=== PATIENT | male | born 1955 | race Caucasian/White ===

== ENCOUNTER → 2016-12-24 | Outpatient (CLI) | payer MEDICAID ==
[~2016-12-24] MED LIST: ASPIRIN ENTERI325 M1 PO; COZAAR PO; COZAAR100 MG PO; DICLOXAXILLIN250 MG PO; LANTUS100 U/ML SUBQ; LORCET 5-325 M1 EACH PO; LORTAB 5-325 M1 EACH PO; LOVASTATIN10 MG PO; NOVOLOG FL100 UNIT/1; NOVOLOG100 UNITS/ SUBQ; PATIENT'S PHARMACY; PROBIOTIC250 MG PO; PROTONIX PO; STOOL SOFTENER50 MG PO
--- NOTE | ~2016-12-24 | CT138 ---
[facility] A Service of [facility] RADIOLOGY TEXT RESULTS PATIENT: JOANNE NOGUEIRA LOCATION: [facility] : 59 UNIT #: [id number] AGE: [address]: Steffany Mckoy MD SEX: M ORDER DR: [id number] [facility] [address] [place], [place] [address] [id number] O MR#: [id number] Acc #: [id number] NAME: JOANNE NOGUEIRA. : 1955 SEX: M STUDY DATE/TIME: 12/24/2016 16:23 UNIT: [facility] ROOM: STUDY DESCRIPTION: CT Lung screening initial Attending Physician: Steffany Mckoy M.D. Referring Physician: Steffany Mckoy M.D. Ordering Physician: Steffany Mckoy M.D. Primary Care Physician: Steffany Mckoy M.D. MEDICAL IMAGING REPORT This report is preliminary unless electronic signature is present EXAM CT chest without contrast lung cancer screening INDICATIONS Lung cancer screening. Current smoker, smokes 64 and 1/2 pack-year total smoking history. TECHNIQUE CT of the chest was performed without contrast using low-dose lung cancer screening protocol. Coronal and sagittal reformatted images were obtained. This CT exam was performed with one or more of the following radiation dose reduction techniques: automatic exposure control, adjustment of mA and/or kV according to patient size, and iterative reconstruction. The CT dose index is 3 mGy. COMPARISON STUDIES There are no comparisons available. FINDINGS Emphysema. There is no suspicious pulmonary nodule. There is a tiny area of nodular thickening involving the major fissure on the right on image 67 measuring about 5 mm. There is no airspace consolidation. There is no suspicious lymphadenopathy. Coronary artery calcifications. Aortic valvular calcifications. Limited imaging of the upper abdomen demonstrates a cholecystectomy. The bone windows are unremarkable. IMPRESSION No suspicious pulmonary nodule. ACR Lung-RADS category 2. Followup annual low-dose lung cancer screening chest CT in 1 year. Dictated by... Srinivasa Bellamy M.D. [facility] A Service of [facility] RADIOLOGY TEXT RESULTS PATIENT: JOANNE NOGUEIRA LOCATION: [facility] : 59 UNIT #: [id number] AGE: [address]: Steffany Mckoy MD SEX: M ORDER DR: THIS IS AN ELECTRONICALLY VERIFIED REPORT Srinivasa Bellamy M.D. at 12/26/2016 4:00 PM Eliecer TD: 12/25/2016 17:06 JOB #: [id number] MEDICAL IMAGING REPORT Page 1 of 1 COPY
== END | disposition home or self-care (01) ==
LOC: CCAT 16:04
DX: F17.210 Nicotine dependence, cigarettes, uncomplicated (principal)
CPT/HCPCS: G0297

== ENCOUNTER 2017-01-25 16:20 | Emergency (ER) | payer MEDICAID ==
[~2017-01-25] VITALS: Ht 182.9 cm; Wt 105.2 kg
--- NOTE | ~2017-01-25 | CR94 ---
[facility] A Service of [facility] RADIOLOGY TEXT RESULTS PATIENT: JOANNE NOGUEIRA LOCATION: [facility] : 59 UNIT #: [id number] AGE: [address]: Peter Orr MD SEX: M ORDER DR: [id number] [id number] [facility]. [place], [place] [address] [id number] MR#: [id number] Acc #: [id number] NAME: JOANNE NOGUEIRA : 1955 SEX: M STUDY DATE/TIME: 01/25/2017 17:44 UNIT: [facility] ROOM: STUDY DESCRIPTION: CR Elbow Min 3 Views Rt Attending Physician: Peter Orr M.D. Ordering Physician: Peter Orr M.D. Primary Care Physician: Steffany Mckoy M.D. MEDICAL IMAGING REPORT This report is preliminary unless electronic signature is present EXAM Three views of the right elbow. DATE 01/25/2017 HISTORY 61-year-old male right elbow pain, swelling and redness for 2 weeks. COMPARISON None FINDINGS Posterior elbow soft tissue swelling is present. There is a bony spur projecting from the posterior margin of the olecranon. There is fragmentation of the bony spur, which may be acute or chronic. There is mild degenerative spurring at the coronoid process of the acromion, and mild spurring at the margins of the medial and lateral humeral condyles. No elbow joint dislocation. IMPRESSION 1. Spurring of the posterior margin of the olecranon process of the ulna. There appears to be fragmentation of the spur, which may be acute or chronic. There is overlying posterior elbow soft tissue swelling. 2. 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 Dictated by... Kalyani Santana M.D. THIS IS AN ELECTRONICALLY VERIFIED REPORT Kalyani Santana M.D. at 01/26/2017 9:55 AM [facility] A Service [facility] RADIOLOGY TEXT RESULTS PATIENT: JOANNE NOGUEIRA LOCATION: [facility] : 59 UNIT #: [id number] AGE: [address]: Peter Orr MD SEX: M ORDER DR: KRISTI/nancy TD: 01/25/2017 22:00 JOB #: [id number] MEDICAL IMAGING REPORT Page 1 of 1 COPY
== END 2017-01-25 18:10 | disposition left against medical advice (07) ==
LOC: CED 16:20
DX: M25.521 Pain in right elbow (principal); E11.9 Type 2 diabetes mellitus without complications; F17.200 Nicotine dependence, unspecified, uncomplicated
CPT/HCPCS: 73080; 82947; 96372; 99284

== ENCOUNTER 2017-01-26 18:22 | Inpatient (IN) | payer MEDICAID ==
[~2017-01-26] VITALS: Ht 182.9 cm; Wt 109.0 kg
--- NOTE | ~2017-01-26 | OR ---
Unit #: [id number] #: [id number] Patient: JOANNE NOGUEIRA [id number] [address] [place], [place] [address] [id number] Michele MR#: [id number] NAME: JOANNE NOGUEIRA. ROOM: 462 Date of Procedure: 01/29/2017 Admission Date: 01/26/2017 Surgeon: Maximo Chen M.D. : 1955 Attending Physician: Gonsalo Bey M.D. Primary Care Physician: Steffany Mckoy M.D. OPERATIVE REPORT PREOPERATIVE DIAGNOSIS Right septic elbow olecranon bursitis. POSTOPERATIVE DIAGNOSIS Right septic elbow olecranon bursitis. PROCEDURE PERFORMED Incision and drainage of right elbow septic olecranon bursitis. 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 ANESTHESIA General with LMA. COMPLICATIONS None. SPECIMENS Culture swabs were sent from the wound. DRAINS Quarter-inch Navi drain. SURGICAL IMPLANTS None. INDICATION FOR PROCEDURE Mr. Nogueira is a 61-year-old gentleman, who developed acute onset right elbow erythema, pain, swelling. His symptoms were consistent with septic bursitis. Based on the findings, it was felt he would benefit from I and D of the bursa. The patient elected to proceed with surgery. Risks, benefits, and alternatives were discussed. Informed consent was obtained. Risks include, but are not limited to, persistent infection, bleeding, nerve injury, blood clots, risks associated with anesthesia, need for further surgery, and possibly . DESCRIPTION OF PROCEDURE On 01/29/2017, the patient was seen in the preoperative holding area, where his surgical site was marked. Scheduled antibiotics were received. H and P and consent updated. The patient was taken to the operating room and provided general anesthesia on the operating table. Right upper Unit #: [id number] #: [id number] Patient: JOANNE NOGUEIRA extremity was then prepped and draped in typical sterile fashion. Time-out was performed confirming the correct surgical site and procedure. The arm was laid across the patient's body. A 2 cm incision was made directly over the olecranon bursa slightly radial. Incision was taken down through the skin and subcutaneous tissues. Bursa fluid was decompressed. This was purulent in nature. Culture swabs were sent. The wound was then thoroughly irrigated with about 1 L of normal saline containing bacitracin. Hemostasis was noted. Single 3-0 nylon suture was placed followed by a Navi drain within the wound. 4x4s, ABD pads, Kerlix, and Edgard bandage were placed. The patient was subsequently awakened from general anesthesia in stable condition and taken to PACU postoperatively. POSTOPERATIVE PLAN The patient will return to his hospital room. We will check cultures. He will continue antibiotics. No complications were encountered during the surgical procedure. Dictated by... Maximo Chen M.D. TAMIKA/marv TD: 01/29/2017 13:45 JOB #: [id number] OPERATIVE REPORT Page 1 of 1 X X PROCEDURE OPERATIVE NOTE
--- NOTE | ~2017-01-26 | DS ---
Unit #: [id number] #: [id number] Patient: JOANNE NOGUEIRA [id number] [address] [address] [id number] I MR#: [id number] NAME: JOANNE NOGUEIRA. ROOM: 462 Age: 61 Sex: M Admission Date: 01/26/2017 : 1955 Discharge Date: 01/30/2017 Attending Physician: Gonsalo Bey M.D. Primary Care Physician: Steffany Mckoy M.D. DISCHARGE SUMMARY DISCHARGE DIAGNOSES 1. Right elbow abscess. 2. Septic arthritis. 3. Wound culture grew methicillin-sensitive Staphylococcus aureus. 4. Diabetes mellitus, insulin dependent. 5. Hypertension. 6. Gastroesophageal reflux disease. PERTINENT HISTORY AND HOSPITAL COURSE The patient is a 61-year-old man with a history significant for diabetes and hypertension, who presents with symptoms of redness and swelling over his right arm that has progressively worsened. During his admission the patient was treated with IV antibiotics, IV vancomycin, IV Zosyn. He underwent an orthopedic consultation where the septic arthritis abscess underwent incision and drainage. He was continued on IV antibiotics. His diabetes was controlled on insulin. The patient currently is ready for discharge. His vitals are stable. DISCHARGE MEDICATIONS 1. Losartan 100 mg p.o. daily. 2. Insulin aspart 20 units subcu a.c. breakfast. 3. Insulin aspart 10 units subcu lunch. 4. Insulin aspart 15 units subcu a.c. dinner. 5. Lantus 60 units q.h.s. 6. Aspirin 325 mg daily. 7. Protonix 40 mg daily. 8. Dicloxacillin 500 mg p.o. q.6 h. for seven days. 9. Florastor two capsules b.i.d. for 30 days. DISCHARGE INSTRUCTIONS 1. Follow up with orthopedics in 7 to 10 days 2. Follow up with primary care physician. Dictated by... Nelia Valdez/reuben TD: 02/01/2017 18:26 JOB #: [id number] Unit #: [id number] #: [id number] Patient: JOANNE NOGUEIRA DISCHARGE SUMMARY Page 1 of 1 X X DISCHARGE SUMMARY
--- NOTE | ~2017-01-26 | HP ---
Unit #: [id number] #: [id number] Patient: JOANNE NOGUEIRA [id number] [address] [place], [place] [address] [id number] I MR#: [id number] NAME: JOANNE NOGUIERA. ROOM: 52057 Age: 61 Sex: M Admission Date: 01/26/2017 : 1955 Attending Physician: Maria Del Rosario Rausch M.D. Primary Care Physician: Steffany Mckoy M.D. HISTORY AND PHYSICAL CHIEF COMPLAINT Right olecranon bursitis/cellulitis. HISTORY This pleasant 61-year-old type 2 diabetic male with hypertension and GERD, is admitted for right olecranon bursitis with cellulitis. Patient states that two weeks ago he developed some swelling over his right elbow. Over the past week this area has become more painful, swollen and red. No definite fevers with the above. He was seen at this emergency department yesterday and was prescribed an antibiotic and Ultram but I do not believe he picked up these medicines. It was recommended that he be admitted but he did not stay as he was to start a new job today. Due to increasing symptoms he presented back to this emergency department tonight. He is afebrile. He has obvious cellulitis around the right elbow, with a likely right olecranon bursitis. He was treated with 900 mg of IV clindamycin in the ER. He is a bit anxious as he does smoke about a pack and a half a day. Apparently has some chronic anxiety issues as well. An x-ray was performed yesterday showing spurring of the posterior margin or the olecranon process at the ulna. There appears to be fragmentation of the spur, which could be acute or chronic. The patient denies recent trauma to the right elbow. PAST MEDICAL HISTORY 1. Essential hypertension. 2. AODM x20 years. 3. GERD. 4. Cholecystectomy. 5. Excision of a benign tumor left foot. 6. Excision of a facial mole, which was benign. 7. 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 Apparently the patient has possibly a torn ligament in his left knee as well. ALLERGIES None. HOME MEDICATIONS Losartan 100 mg daily; Lantus 60 unit subcu q.h.s.; NovoLog 20 units in the morning, 10 units in the afternoon, and 15 units in the evening; proton pump inhibitor once a day; aspirin 325 mg a day. Patient was prescribed Ultram and antibiotic but I do not believe he has purchased these. Unit #: [id number] #: [id number] Patient: JOANNE NOGUEIRA FAMILY HISTORY CAD in his mother at an older age. SOCIAL HISTORY The patient lives with his fiancee of 7 years. He smokes between to 1 1/2 packs per day of tobacco and does not drink alcohol REVIEW OF SYSTEMS Notable for pain and swelling of the right elbow, hypertension, AODM, GERD and above mentioned surgeries. All other systems were reviewed and otherwise negative. PHYSICAL EXAMINATION GENERAL: Pleasant, obese, mildly obese 61-year-old male currently in no acute distress. VITAL SIGNS: Temperature 98.9, pulse 78, respirations 16, blood pressure 145/61. O2 saturation is 97% on room air. HEENT: Eyes - PERRLA. Extraocular muscles are intact. Pharynx is benign. NECK: Supple without adenopathy or thyromegaly. EXTREMITIES: Notable for right elbow olecranon bursitis with associated cellulitis. LUNGS: Expiratory wheezes. CARDIAC: Normal S1 and S2 without S3, S4 or murmur ABDOMEN: Bowel sounds are present. No hepatosplenomegaly, tenderness, or masses. NEUROLOGIC: Patient is awake, alert, and oriented. Cranial nerves are intact. Equal strength throughout. DIAGNOSTIC STUDIES LABS: Hematocrit is 35.7, normal white count, platelet count. SMA 12 - glucose 142, potassium 3.4, calcium 8.1, albumin of 3.1, C-reactive protein is 9.5. IMAGING STUDIES: X-ray yesterday - mild DJD of the right elbow, spurring of the posterior margin of the olecranon process of the ulna. Fragmentation of the spur, which could be acute or chronic. Soft tissue swelling. ASSESSMENT 1. Right olecranon bursitis/cellulitis. 2. AODM. 3. Essential hypertension. 4. GERD. 5. Tobacco use. 6. Suspect COPD. PLANS 1. Vancomycin. 2. Orthopedic surgeon to see. 3. SCDs for DVT prophylaxis. 4. Supportive treatment. 5. NicoDerm patch and p.r.n. Ativan for anxiety while he is unable to smoke. Dictated by Unit #: [id number] #: [id number] Patient: JOANNE NOGUEIRA Shannon Rausch M.D. AML/ts TD: 01/27/2017 05:56 JOB #: [id number] HISTORY AND PHYSICAL Page 1 of 1 X Maria Del Rosario Rausch MD X HISTORY AND PHYSICAL
--- NOTE | ~2017-01-26 | OR ---
Unit #: [id number] #: [id number] Patient: JOANNE NOGUEIRA [id number] [address] [place], [place] [address] [id number] I MR#: [id number] NAME: JOANNE NOGUEIRA ROOM: 462 Date of Procedure: 01/28/2017 Admission Date: 01/26/2017 Surgeon: Robin Finn P.A.-C- : 1955 Attending Physician: Gonsalo Bey M.D. Primary Care Physician: Steffany Mckoy M.D. PROCEDURE OPERATIVE NOTE PROCEDURE PERFORMED Right elbow bursa aspiration. REASON FOR PROCEDURE Effusion. PROCEDURE After sterile technique with alcohol prep, the patient's right elbow bursa was anesthetized in a the usual fashion with 2 mL of 1% Xylocaine without epinephrine. 18 gauge cannula was then introduced laterally. Approximately 2 mL of pus was aspirated. The patient tolerated the procedure well with no apparent complications. Sterile dressing was applied. Will send this to the lab for cultures, etc. Dictated by... Minoo Mahan KF/ts TD: 01/28/2017 08:48 JOB #: [id number] PROCEDURE OPERATIVE NOTE Page 1 of 1 X X PROCEDURE OPERATIVE NOTE
--- NOTE | ~2017-01-26 | CO ---
Unit #: [id number] #: [id number] Patient: JOANNE NOGUEIRA [id number] [facility]. [place], [place] [address] [id number] I MR#: [id number] NAME: JOANNE NOGUEIRA. ROOM: 462 Age: 61 Sex: M Admission Date: 01/26/2017 : 1955 Attending Physician: Gonsalo Bey M.D. Primary Care Physician: Steffany Mckoy M.D. CONSULTATION REPORT HISTORY OF PRESENT ILLNESS This is a 61-year-old diabetic, who smokes, who has had right elbow pain for about a week. He noticed some redness and then it began to swell, got progressively worse. He came to the emergency room, was admitted on 01/26/2017. He states he has not had any fevers or chills. It is noted that the redness has been getting worse as was the swelling. 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 He has not had any treatment until he got admitted. He has been started on IV antibiotics. PAST MEDICAL HISTORY Reveals that he does have a history of diabetes as well as reflux and hypertension. SOCIAL HISTORY He socially lives at home with his . He occasionally drinks alcohol. Denies drugs, but is continues to be a smoker. PAST SURGICAL HISTORY Includes cholecystectomy, excision of a tumor left foot and a mole that was benign and he is a diabetic. He gets regular steroid injections into his left knee for his arthritis. ALLERGIES He has no allergies. MEDICATIONS Include losartan, Lantus, NovoLog, and occasionally Ultram. REVIEW OF SYSTEMS He denies headaches or blurred vision. Denies loss of consciousness. He has no chest pain or shortness of breath. He denies hemoptysis. He has no abdominal complaints. No nausea, diarrhea, or vomiting and no reflux symptoms. Neurologically, he is intact. Vascular keita, he has no history of claudication. Genitourinary system, he denies frequency or burning. No blood in the urine. His orthopedic complaints include only in his left knee for arthritis and his right elbow pain and swelling. PHYSICAL EXAMINATION GENERAL: Today reveals he is resting comfortably in bed. VITAL SIGNS: Temperature 99.6, pulse is 69, blood pressure 152/64. EXTREMITIES: Exam of his right elbow; he has good range of motion of the elbow. He does have fluid in the olecranon bursa. There was some erythema and redness as well. Unit #: [id number] #: [id number] Patient: JOANNE NOGUEIRA PLAN Plan will be to aspirate his bursa in the a.m. and if it is a pus, he may need an I and D. Dictated by... Nelia Gibson/marv TD: 01/27/2017 17:44 JOB #: [id number] CONSULTATION REPORT Page 1 of 1 X Michele Frost MD X CONSULTATION REPORT
--- NOTE | ~2017-01-26 | EKG ---
PATIENT: JOANNE NOGUEIRA UNIT #: [id number] Ventricular Rate: 71 BPM Atrial Rate: 71 BPM P-R Interval: 160 ms QRS Duration: 90 ms Q-T Interval: 408 ms QTC Calculation(Bezet): 443 ms P Muir: 58 degrees Calculated R Muir: -20 degrees Calculated T Muir: -27 degrees Diagnosis Line: Normal sinus rhythm Diagnosis Line: Normal ECG Diagnosis Line: No previous ECGs available Diagnosis Line: Confirmed by TAL ALANIS MD ([id number]) on Diagnosis Line: 01/27/2017 12:19:14 PM INTERPRETING MD: SHANNON
[2017-01-26 21:19] LABS: BASOPHIL# 0.1 X10e3 (0-0.3); BASOPHIL% 1.2 % (0-2.5); EOSINOPHIL# 0.2 X10e3 (0-0.7); EOSINOPHIL% 1.9 % (0.0-7.0); HEMATOCRIT 35.7 % (38.0-50.0); HEMOGLOBIN 11.8 gm/dL (13.0-16.0); LYMPHOCYTE# 2.7 X10e3 (1.0-3.5); LYMPHOCYTE% 24.3 % (17.0-45.0); MEAN CELL VOLUME 83.3 FL (83-96); MEAN CORPUSCULAR HEMOGLOBIN 27.5 PG (28-34); MEAN PLATELET VOLUME 7.9 FL (6.5-11.5); MONOCYTE# 1.1 X10e3 (0-1.0); MONOCYTE% 9.7 % (3.0-12.0); NEUTROPHIL# 6.9 X10e3 (1.5-7.1); NEUTROPHIL% 62.9 % (40-75); PLATELET COUNT 274 X10e3 (140-420); RED BLOOD COUNT 4.29 X10e (3.90-5.60); RED CELL DISTRIBUTION WIDTH 13.5 % (11.0-15.5)
[2017-01-26 21:20] LABS: DIFF IND NO
[2017-01-26 22:00] LABS: ALBUMIN SERUM 3.1 g/dL (3.5-5.0); BILIRUBIN, DIRECT 0.1 mg/dL (0.0-0.2); BILIRUBIN,INDIRECT 0.3 mg/dL (0.0-0.9); BILIRUBIN,TOTAL 0.4 mg/dL (0.2-2.0); BUN/CREATININE RATIO 22.85; CALCIUM SERUM 8.1 mg/dL (8.4-10.2); CREATININE SERUM 0.7 mg/dL (0.6-1.4); GLOM FILT RATE Estimated 103.3 mL/min (>60); POTASSIUM 3.4 mmol/L (3.5-5.1); PROTEIN TOTAL SERUM 6.7 g/dL (6.0-8.3)
[2017-01-27 03:53] LABS: BASOPHIL# 0.1 X10e3 (0-0.3); DIFF IND NO; EOSINOPHIL# 0.2 X10e3 (0-0.7); EOSINOPHIL% 2.2 % (0.0-7.0); HEMATOCRIT 33.8 % (38.0-50.0); HEMOGLOBIN 11.4 gm/dL (13.0-16.0); LYMPHOCYTE# 2.8 X10e3 (1.0-3.5); LYMPHOCYTE% 26.6 % (17.0-45.0); MEAN CELL VOLUME 82.7 FL (83-96); MEAN CORPUSCULAR HEMOGLOBIN 27.8 PG (28-34); MEAN CORPUSCULAR HGB CONC 33.6 g/dL (30-36); MEAN PLATELET VOLUME 8.1 FL (6.5-11.5); MONOCYTE# 0.9 X10e3 (0-1.0); NEUTROPHIL# 6.4 X10e3 (1.5-7.1); NEUTROPHIL% 61.2 % (40-75); PLATELET COUNT 238 X10e3 (140-420); RED BLOOD COUNT 4.09 X10e (3.90-5.60); RED CELL DISTRIBUTION WIDTH 13.8 % (11.0-15.5); WHITE BLOOD COUNT 10.4 X10e3 (4.0-10.5)
[2017-01-27 04:15] LABS: BUN/CREATININE RATIO 21.42; CALCIUM SERUM 7.9 mg/dL (8.4-10.2); CREATININE SERUM 0.7 mg/dL (0.6-1.4); GLOM FILT RATE Estimated 103.3 mL/min (>60); POTASSIUM 3.4 mmol/L (3.5-5.1)
[2017-01-27] MEDS ORDERED: ASPIRIN ENTERI325 M1 PO (08:39)
[2017-01-27] MEDS ORDERED: COZAAR100 MG PO (08:39)
[2017-01-27] MEDS ORDERED: LANTUS100 U/ML SUBQ (08:41)
[2017-01-27] MEDS ORDERED: NOVOLOG100 UNITS/ SUBQ ×3 (08:41→08:44)
[2017-01-27] MEDS ORDERED: PROTONIX PO (09:24)
[2017-01-29 01:58] LABS: MAGNESIUM 2.1 mg/dL (1.6-3.0); POTASSIUM 3.5 mmol/L (3.5-5.1)
[2017-01-30 03:21] LABS: CREATININE SERUM 0.7 mg/dL (0.6-1.4); GLOM FILT RATE Estimated 103.3 mL/min (>60); POTASSIUM 4.2 mmol/L (3.5-5.1)
[2017-01-30] MEDS ORDERED: DICLOXAXILLIN250 MG PO (13:24)
[2017-01-30] MEDS ORDERED: LORCET 5-325 M1 EACH PO (13:26)
[2017-01-30] MEDS ORDERED: PROBIOTIC250 MG PO (13:27)
== END 2017-01-30 14:28 | disposition home or self-care (01) | DRG 549 ==
LOC: CED 18:22 → CEDOF 23:50 → C4C 23:50 → CEDOF 23:59 → CED 23:59 → CEDOF 01-27 07:47 → C4C 01-27 07:55
PROVIDERS: Emergency Medicine; Internal Medicine; Orthopaedic Surgery
PROC: 0R9L3ZX Drainage of Right Elbow Joint, Percutaneous Approach, Diagnostic (ICD-10-PCS; 2017-01-28)
PROC: 0M930ZX Drainage of Right Elbow Bursa and Ligament, Open Approach, Diagnostic (ICD-10-PCS; principal; 2017-01-29 10:00)
DX: M00.021 Staphylococcal arthritis, right elbow (principal); L03.113 Cellulitis of right upper limb; I10 Essential (primary) hypertension; L02.413 Cutaneous abscess of right upper limb; E11.9 Type 2 diabetes mellitus without complications; F41.9 Anxiety disorder, unspecified; B95.61 Methicillin susceptible Staphylococcus aureus infection as the cause of diseases classified elsewhere; M70.21 Olecranon bursitis, right elbow; K21.9 Gastro-esophageal reflux disease without esophagitis; F17.210 Nicotine dependence, cigarettes, uncomplicated; Z90.49 Acquired absence of other specified parts of digestive tract; Z79.4 Long term (current) use of insulin
CPT/HCPCS: 36415; 80048; 80076; 80202; 82947; 83735; 84132; 85025; 85652; 85730; 86140; 87040; 87070; 87075; 87077; 87186; 87205; 93005; 94640; 94760; 94761; 96365; 99284; J1815; J2060; J2405; J2543; J3010; J3370

== ENCOUNTER 2017-02-16 10:06 | Inpatient (IN) | payer MEDICAID ==
[~2017-02-16] VITALS: Ht 182.9 cm; Wt 105.4 kg
--- NOTE | ~2017-02-16 | HP ---
Unit #: [id number] #: [id number] Patient: JOANNE NOGUEIRA [id number] [facility]. [place], [place] [address] [id number] I MR#: [id number] NAME: JOANNE NOGUEIRA. ROOM: 43323 Age: 61 Sex: M Admission Date: 02/16/2017 : 1955 Attending Physician: Trinity Isaacs M.D. Primary Care Physician: Steffany Mckoy M.D. HISTORY AND PHYSICAL CHIEF COMPLAINT Short of air, chest pain. HPI The patient is a 61-year-old male with past medical history of hypertension, diabetes, GERD who presented to the emergency department for evaluation of the above. The patient states that he has had at least a 2 week history of increasing shortness of breath and lower extremity swelling. He states that he has had an intermittently productive cough. He denies any fever. He has also had intermittent chest pain. He reports 2 pillow orthopnea as well as paroxysmal nocturnal dyspnea. He is not sure if he has gained weight. He has noticed increasing lower extremity swelling. He has never been told that he has congestive heart failure. He states that he had a stress test more than 5 years ago in [place]. He has never had a cardiac catheterization. He did see a car wiper in [place] within the past year for cardiac clearance for knee surgery. In the emergency department, initial oxygen saturation was 95% on room air. Blood pressure 152/75. Chest x-ray shows findings concerning for edema. BNP is 760. Initial troponin 0.09. EKG shows normal sinus rhythm with rate of 76 beats per minute. He was given aspirin as well as sublingual nitroglycerin (3 doses) in the emergency department. Additionally, nitro paste was placed. He was also given 40 mg of furosemide. He is currently on BiPAP. He is being admitted to [facility] for evaluation and further treatment. PAST MEDICAL HISTORY 1. Admission to [facility] January 26 through the 2016, for right elbow abscess. Wound culture from January 29, 2017, grew MSSA. He was discharged home on dicloxacillin which he completed as prescribed. He underwent incision and drainage of the right elbow during that admission. 2. Diabetes. 3. Hypertension. 4. GERD. PAST SURGICAL HISTORY 1. Incision and drainage of right elbow septic olecranon bursitis. 2. Cholecystectomy. 3. Left foot surgery. 4. Excision of facial lesion. 5. Knee surgery. Unit #: [id number] #: [id number] Patient: JOANNE NOGUEIRA SOCIAL HISTORY The patient lives with his fiancee. He smokes a pack of cigarettes daily. There is no alcohol use. FAMILY HISTORY Notable for coronary artery disease. ALLERGIES No known allergies. HOME MEDICATIONS Include: 1. NovoLog. 2. Lantus. 3. Protonix. 4. Losartan. 5. Aspirin. Home medications will need to be reviewed and verified. REVIEW OF SYSTEMS A complete review of systems is negative except as noted in the HPI. The patient did say that his blood sugars are typically in the 100s. DIAGNOSTIC TESTS CARDIOVASCULAR: EKG shows normal sinus rhythm with a rate of 76 beats per minute. IMAGING: Chest x-ray shows mild cardiac enlargement with diffuse interstitial change concerning for edema. LABORATORY: Complete blood count notable for hemoglobin and hematocrit of 9.7 and 29.9 respectively. MCV is 81.9. Comprehensive metabolic panel notable for chloride of 99, glucose is 264, albumin 3.3, BUN is 760, INR is 1.2, troponin is 0.09. PHYSICAL EXAMINATION VITAL SIGNS: Temperature is 97.7, pulse 81, respirations 16, blood pressure 152/75. Oxygen saturation 95% on room air. GENERAL: The patient is a male who is awake, currently on BiPAP. HEENT: The head is atraumatic. Mucous membranes are moist. NECK: Supple. Trachea is midline. CARDIOVASCULAR: Regular rate and rhythm. LUNGS: Demonstrate bibasilar crackles. Breathing is mildly labored. ABDOMEN: Soft, nontender with bowel sounds present in all four quadrants. EXTREMITIES: Show 2-3+ pitting edema. NEURO: The patient is oriented x3. He follows commands. PSYCH: Mood and affect are normal. The patient is cooperative. SKIN: Skin of examined areas is warm and dry. ASSESSMENT The patient is a 61-year-old male with: 1. Congestive heart failure, new with exacerbation. The patient received 40 mg of furosemide in the emergency department. He also has nitro paste. Unit #: [id number] #: [id number] Patient: JOANNE NOGUEIRA 2. Chest pain. The patient received nitroglycerin and is currently had nitro paste. He also received aspirin. He had a stress test more than 5 years ago. He has never had a cardiac catheterization. He did see a car wiper in [place] for cardiac clearance for knee surgery. 3. Hypertension. 4. Uncontrolled diabetes with glucose of 264 noted on comprehensive metabolic panel. 5. GERD. 6. History of MSSA elbow abscess, status post incision and drainage. 7. Tobacco abuse. PLAN 1. Admit to ICU. 2. NPO except medications. 3. Continue BiPAP at current settings (05/13 with an FIO2 of 40%). 4. 2D echo for further evaluation of new CHF. 5. Nitro paste, 1 inch q.6 hours. 6. Lasix 40 mg IV daily. 7. Serial cardiac enzymes. 8. TSH. 9. Strict I's and O's. 10. Daily weights. 11. Consult Dr. Hall regarding new CHF. 12. Consult chest medicine regarding ICU admission and BiPAP. 13. Duo-Nebs q.4 hours p.r.n. 14. Hemoglobin A1c. 15. Low dose sliding scale insulin with Accu-Cheks. 16. Protonix for GI prophylaxis since the patient will be in the ICU. 17. SCDs for DVT prophylaxis. 18. Repeat labs in the morning. 30 minutes critical care time spent in the care of this patient (12:45 to 1:15 p.m.). Dictated by Nelia Craig/sommer TD: 02/16/2017 15:17 JOB #: [id number] HISTORY AND PHYSICAL Page 1 of 1 X Trinity Isaacs MD HISTORY AND PHYSICAL
--- NOTE | ~2017-02-16 | CR72 ---
[facility] A Service of [facility] / [facility] RADIOLOGY TEXT RESULTS PATIENT: JOANNE NOGUEIRA LOCATION: [facility] 575-01 : 59 UNIT #: [id number] AGE: [address]: Chantal Henson MD SEX: M ORDER DR: [id number] [id number] [facility]. [place], [place] [address] [id number] I MR#: [id number] Acc #: [id number] NAME: JOANNE NOGUEIRA : 1955 SEX: M STUDY DATE/TIME: 02/17/2017 5:55 UNIT: [facility] ROOM: [facility] STUDY DESCRIPTION: CR Chest Single View Portable Attending Physician: Chantal Henson M.D. Ordering Physician: Arturo Vital M.D. Primary Care Physician: Steffany Mckyo M.D. MEDICAL IMAGING REPORT This report is preliminary unless electronic signature is present EXAM Frontal chest 02/17/2017 INDICATIONS Respiratory failure in a 61-year-old male. bilateral soft tissue swelling of the lower extremities and chest pain symptoms began 2 days ago. Hypertension and diabetes. FINDINGA Frontal chest compared with 02/16/2017. Cardiac silhouette is stable. Interstitial AND alveolar infiltrates are moderately extensive and worse on the right than the left. There may be a trace amount of pleural fluid bilaterally. No pneumothorax. IMPRESSION Interstitial and alveolar infiltrates bilaterally right greater than left persist and are stable to slightly worse when compared to the prior study. No pneumothorax. Differential includes possibility of multifocal pneumonia or pneumonia and superimposed vascular congestion. Dictated by... Eric Taylor M.D. THIS IS AN ELECTRONICALLY VERIFIED REPORT Eric Taylor M.D. at 02/17/2017 2:29 PM Arinana TD: 02/17/2017 12:24 JOB #: [id number] [facility] A Service [facility] RADIOLOGY TEXT RESULTS PATIENT: JOANNE NOGUEIRA LOCATION: [facility] [id number] : [birth year] UNIT #: [id number] AGE: [address]: Chantal Henson MD SEX: M ORDER DR: MEDICAL IMAGING REPORT Page 1 of 1 COPY
--- NOTE | ~2017-02-16 | CR72 ---
[facility] A Service of [facility] & [facility] RADIOLOGY TEXT RESULTS PATIENT: JOANNE NOGUEIRA LOCATION: [address]19 : [birth year] UNIT #: [id number] AGE: [address]: Chantal Henson MD SEX: M ORDER DR: [id number] [facility] [address] [facility]. [place], [place] [address] [id number] I MR#: [id number] Acc #: [id number] NAME: JOANNE NOGUEIRA. : 1955 SEX: M STUDY DATE/TIME: 02/16/2017 11:08 UNIT: [facility] ROOM: [facility] STUDY DESCRIPTION: CR Chest Single View Portable Attending Physician: Trinity Isaacs M.D. Ordering Physician: Tyler Ramon M.D. Primary Care Physician: Steffany Mckoy M.D. MEDICAL IMAGING REPORT This report is preliminary unless electronic signature is present EXAM AP portable chest. DATE 02/16/2017 HISTORY Shortness of breath and chest pain with bilateral lower extremity swelling for 2 weeks. Diabetes. Hypertension. History of smoking. COMPARISON PA and lateral chest radiograph, 02/06/2016. FINDINGS Diffuse interstitial and alveolar disease changes are present within both lungs, right greater than left. No definite pleural effusion is seen. There is mild cardiac enlargement which appears new since the prior study. No acute osseous abnormalities are identified. IMPRESSION 1. Diffuse interstitial and alveolar disease changes in both lungs. Interval development of mild cardiac enlargement. Findings may represent changes of developing pulmonary edema compared to 02/06/2016. Pneumonia can have a similar appearance of the appropriate clinical context. Dictated by... Kalyani Santana M.D. THIS IS AN ELECTRONICALLY VERIFIED REPORT Kalyani Santana M.D. at 02/17/2017 9:50 AM [facility] A Service of [facility] & [facility] RADIOLOGY TEXT RESULTS PATIENT: JOANNE NOGUEIRA LOCATION: [facility]07-19 : 59 UNIT #: [id number] AGE: [address]: Chantal Henson MD SEX: M ORDER DR: KRISTI/iris TD: 02/16/2017 21:14 JOB #: [id number] MEDICAL IMAGING REPORT Page 1 of 1 COPY
--- NOTE | ~2017-02-16 | CO ---
Unit #: [id number] #: [id number] Patient: JOANNE NOGUEIRA [id number] [facility]. [place], [place] [address] [id number] I MR#: [id number] NAME: JOANNE NOGUEIRA ROOM: 575 Age: 61 Sex: M Admission Date: 02/16/2017 : 1955 Attending Physician: Chantal Henson M.D. Primary Care Physician: Steffany Mckoy M.D. Consultation Date: 02/16/2017 CONSULTATION REPORT REASON FOR CONSULTATION CHF. HISTORY OF PRESENT ILLNESS This is a 61-year-old male with a prior history of hypertension, diabetes mellitus, GERD, tobacco abuse, and a recent admission to [facility] in 01/2017 for MRSA elbow abscess and septic arthritis. He denies a prior cardiac history or prior cardiac testing. He was discharged from [facility] on Thursday. Later that night, he developed sharp left chest pain with shortness of air lasting about 5 minutes. It occurred at rest and resolved spontaneously. He denies diaphoresis, nausea, palpitations, or radiating pain with the episode. Since then, he has had increasing shortness of air. He states he has also had orthopnea, PND, and bilateral lower extremity edema for about the last 3 days. Prior to this incident, he denies any exertional chest pain. His dpagr-kk-bapc troponin in the ER is 0.09. He is currently on a noninvasive ventilator BiPAP. His breathing has improved. He denies any chest pain at this time. PAST MEDICAL HISTORY 1. Hypertension. 2. Diabetes mellitus. 3. GERD. 4. Tobacco abuse. 5. Recent admission for septic arthritis and MRSA elbow abscess. SOCIAL HISTORY He lives with his significant other. He states he is a former heavy drinker, but he quit over 30 years ago. He denies drug use. He smokes about 1-1/2 packs per day. FAMILY HISTORY His mother had coronary artery disease. PAST SURGICAL HISTORY 1. Incision and drainage of right elbow septic bursitis. 2. Cholecystectomy. 3. Left foot surgery. 4. Excision of facial lesion. 5. Knee surgery. Unit #: [id number] #: [id number] Patient: JOANNE NOGUEIRA ALLERGIES No known drug allergies. HOME MEDICATIONS NovoLog FlexPen 15 units in the a.m., 10 units at noon, and 20 units before dinner; Lortab 5/325 mg tablets, 1 tab p.o. every 6 hours as needed for pain; Protonix 40 mg p.o. daily; Cozaar 100 mg p.o. daily; Lantus 60 units subcu at bedtime; lovastatin 10 mg p.o. daily; stool softener 100 mg p.o. b.i.d. REVIEW OF SYSTEMS A 10-point review of systems was conducted and is otherwise negative except for what was stated in the HPI. PHYSICAL EXAMINATION VITAL SIGNS: Temperature 97.7, heart rate 75, respiratory rate 20, blood pressure 132/75. GENERAL: This is a 61-year-old male, resting in bed, on noninvasive ventilator, in no acute distress. HEENT: Head is atraumatic and normocephalic. Pupils are equal and reactive to light. Mucous membranes are moist and intact. NECK: Positive JVD. LUNGS: Rhonchi. Nonlabored respirations on BiPAP. CARDIOVASCULAR: S1 and S2. Regular rate and rhythm. No significant murmurs, rubs, or gallops. ABDOMEN: Bowel sounds positive. Abdomen is soft, nontender, and nondistended. EXTREMITIES: Bilateral lower extremities with 2+ edema. Pulses palpable. No cyanosis. NEUROLOGIC: Alert and oriented x3. Moves all extremities equally and follows commands without difficulty. DIAGNOSTIC STUDIES LABORATORY RESULTS: Sodium 136, potassium 3.5, chloride 99, BUN 12, creatinine 1, glucose 264. Hemoglobin 9.7, hematocrit 29.9, white blood cell count 9.7, platelets 337. BNP 760. Ideac-jw-atxe troponin 0.09. IMAGING STUDIES: Chest x-ray shows mild cardiomegaly with diffuse interstitial alveolar changes bilaterally which could represent pneumonia or pulmonary edema. CARDIOVASCULAR STUDY: EKG shows sinus rhythm with ventricular rate of 76 and nonspecific T-wave abnormalities. ASSESSMENT 1. Acute congestive heart failure. 2. Chest pain. 3. Uncontrolled diabetes mellitus. 4. Hypertension. 5. Elevated troponin. 6. Recent methicillin-resistant Staphylococcus aureus elbow abscess. 7. Tobacco abuse. PLAN His breathing has improved. He denies chest pain. We will check an echocardiogram. Trend his enzymes. Check TSH and lipid profile. We will add a statin, aspirin, and Lovenox. Continue his ARB. Add beta-jasmin. He will need an ischemic workup when his pulmonary status improves. Unit #: [id number] #: [id number] Patient: JOANNE NOGUEIRA Thank you for asking us to see this patient. We appreciate the consult. Dictated by... AKBAR Grider/marv TD: 02/17/2017 06:43 JOB #: [id number] CONSULTATION REPORT Page 1 of 1 X X CONSULTATION REPORT
--- NOTE | ~2017-02-16 | DS ---
Unit #: [id number] #: [id number] Patient: JOANNE NOGUEIRA [id number] [address] [address] [id number] I MR#: [id number] NAME: JOANNE NOGUEIRA. ROOM: 575 Age: 61 Sex: M Admission Date: 02/16/2017 : 1955 Discharge Date: Attending Physician: Chantal Henson M.D. Primary Care Physician: Steffany Mckoy M.D. DISCHARGE SUMMARY EXPECTED DATE OF DISCHARGE 02/19/2017 REASON FOR DISCHARGE Reason for discharge is [facility] Cardiology service with cardiovascular surgery to evaluate upon arrival to [facility] for CABG procedure. ADMISSION DIAGNOSES 1. Congestive heart failure, new, with exacerbation. 2. Chest pain. 3. Hypertension. 4. Uncontrolled diabetes. 5. Gastroesophageal reflux disease. 6. History of elbow abscess status post incision and drainage. 7. History of methicillin-sensitive Staphylococcus aureus infection. Cultures completed 01/28/2017. DISCHARGE DIAGNOSES 1. Severe coronary artery disease, status post abnormal cardiac catheterization. 2. Questionable aortic stenosis/regurgitation. 3. Anemia. 4. Acute hypoxic respiratory failure. 5. Type 2 diabetes mellitus, uncontrolled. 6. Tobacco abuse. 7. Non-ST elevation myocardial infarction. 8. Possible obstructive sleep apnea. CONSULTANTS Arturo Vital M.D., pulmonary medicine and Antonio Hall M.D., [facility] Cardiology. PROCEDURES Cardiac catheterization 02/18/17, final diagnoses: 1. Severe 2 vessel coronary artery disease. 2. Mild to moderate left ventricular systolic dysfunction. 3. Mild to moderate aortic stenosis, mild to moderate aortic regurgitation. 4. Moderate to severe pulmonary hypertension. 5. Diabetes mellitus. 6. COPD. 7. ACC diagnostic recommendations: CABG. Unit #: [id number] #: [id number] Patient: JOANNE NOGUEIRA CONDITION Stable. DISPOSITION [facility] where the patient has been accepted to room 815 under the care of [facility] Cardiology with cardiovascular surgery to evaluate upon arrival to [facility]. ALLERGIES No known drug allergies. DISCHARGE MEDICATIONS 1. Combivent 3 mL inhaled q.i.d. and p.r.n. shortness of air. 2. Lovenox 100 mg subcu every 12 hours. 3. Zofran 4 mg IV q.4 hours p.r.n. nausea. 4. Nicotine transdermal 21 mg transdermally every morning. 5. Ativan 0.5 mg IV q.6 hours p.r.n. nervousness. 6. Dulera 200 mcg/5 mcg inhaler 2 puffs inhaled b.i.d. 7. Colace 100 mg p.o. b.i.d. p.r.n. constipation. 8. Bumetanide 2 mg p.o. b.i.d. 9. Lipitor 80 mg p.o. at bedtime. 10. Cozaar 50 mg p.o. at bedtime. 11. NovoLog high dose sliding scale insulin before meals and at bedtime based on Accu-Cheks a.c. and h.s. 12. Zithromax 250 mg p.o. daily. Start date 02/17/17. Stop date 02/20/17. 13. Aspirin 81 mg p.o. every 24 hours. 14. Hydrocodone/APAP 5/325 mg tab 1 p.o. q.6 hours p.r.n. pain. 15. Percocet 5/325 mg tab 1 to 2 tabs p.o. q.4 hours p.r.n. pain. 16. Protonix 40 mg p.o. q. day. 17. Sodium chloride 1 mL IV q. shift p.r.n. for IV catheter maintenance. 18. Nitroglycerin 2% ointment 0.5 g topically every 12 hours (1/2 inch b.i.d.). 19. Coreg 3.125 mg 1 p.o. b.i.d. to be held for systolic blood pressure less than 100 mmHg or heart rate less than 60 per minute. DISHCARGE/TRANSFER INSTRUCTIONS 1. Patient will be transferred via ambulance, which has been arranged by the childcare provider, to [facility] later this afternoon. 2. Yash CoppolaP.RMartina, with [facility] Cardiology, who is working with Dr. Hall today at [facility]. [facility], has communicated the transfer information to nurse practitioners at [facility] today. Again, patient will be admitted to [facility] Cardiology with cardiovascular surgery to consult and evaluate upon arrival for CABG procedure. MOST RECENT DIAGNOSTIC STUDIES LABORATORY: WBC 9.4, hemoglobin 9.1, hematocrit 28.3, platelets 283,000. INR 1.1, PT 12.2, PTT 28.5. BNP 840. BMP: Sodium 136, potassium 4.3, chloride 98, CO2 33, glucose 398, BUN 24, creatinine 1.0, calcium 8.0. Magnesium 2.2. Hemoglobin A1C 9.4. Troponins 0.24, 0.28, 0.22. IMAGING: Two-view chest x-ray date of study 02/18/17, impression: slight increase in bilateral infiltrate suggesting CHF per report. HOSPITAL COURSE Patient is a 61-year-old male who presented to [facility]. [facility] and Unit #: [id number] #: [id number] Patient: [facility] emergency department on the date of admission with a 2 week history of increasing shortness of breath and lower extremity edema. His symptoms are associated with an intermittent productive cough as well as intermittent chest pain. He reported 2 pillow orthopnea as well as PND. EKG in the emergency department showed normal sinus rhythm with rate of 76 beats per minute. The patient was treated with aspirin as well as three doses of sublingual nitroglycerin. He was also treated with Lasix 40 mg IV. He was placed on BiPAP and admitted to the hospital for further evaluation and management of his condition. Please refer to the history and physical report for complete details. Patient was evaluated my [facility] Cardiologists with assessment of acute congestive heart failure, constipation, uncontrolled diabetes mellitus, hypertension, elevated troponin as well as recent MRSA infection of an elbow abscess. Patient is also noted to abuse tobacco. Cardiac workup was initiated and he underwent cardiac catheterization procedure yesterday by Dr. Ortiz. Per review of the finalized cardiac diagnostic report, coronary arteries show mild to moderate calcification. Aortic valve leaflets moderately calcified. Mild left ventricular systolic dysfunction with ejection fraction of 45 to 50%. Mild to moderate aortic regurgitation seen. 95% stenosis in proximal 1/3rd of the dominant circumflex and 90% stenosis in midsection of a medium caliber LAD. Moderate to severe pulmonary hypertension with right ventricular systolic pressure 58 mmHg. Coronary wedge pressure 31/48 with tall V waves suggestive of mitral regurgitation. Calculated aortic valve area is 1.82 cm square suggesting mild to moderate aortic stenosis. Final diagnoses include severe 2 vessel coronary artery disease, mild to moderate left ventricular systolic dysfunction, mild to moderate aortic stenosis, mild to moderate aortic regurgitation, moderate to severe pulmonary hypertension, diabetes mellitus and COPD. ACC diagnostic recommendations include CABG with OLIVAS graft to LAD and a vein graft to the posterior marginal branch of circumflex per report. The plan included increased dose of diuretics, losartan dose continued after afterload reduction, 1800 mL fluid restriction. Patient was advised to discontinue use of nicotine. Nonselective beta blockers continued for prevention of left ventricular remodeling. Consideration should be given to preoperative LULY to determine severity of mitral regurgitation. Patient was also evaluated during the hospitalization for acute respiratory failure noted clinically by increased respiratory rate, increased work of breathing and need for noninvasive mask ventilation initially. Patient was evaluated and managed from a pulmonary standpoint by Dr. Arturo Vital. He noted chest x-ray to be consistent with congestive heart failure, underlying COPD versus airway edema, likely obstructive sleep apnea. The patient was evaluated by Dr. Vital this morning. His recommendation includes continued inhaled medications, pulse oximetry. Room air pulse oximeter reading is pending at this time. Patient will be transferred at O2 titrated to 4 L per minute to maintain oxygen saturations greater than or equal to 92%. The patient's vital signs have been stable throughout the hospital course. Accu-Cheks have been elevated with range of 142 to 398 today. The patient is awake, alert and oriented x3. Dr. Hall and Aminta Keller, Emelia, have spoken with the patient and discussed the plan for transfer to [facility] for CABG and he is in agreement with the plan. I have also spoken with him and Dr. Henson and Dr. Henson has given the order for the patient to be transferred to [facility] later this afternoon. Unit #: [id number] #: [id number] Patient: JOANNE NOGUEIRA Dictated by... Yash CantuPNegritoRMartina for Nelia Pindeo/reuben TD: 02/19/2017 16:59 JOB #: [id number] DISCHARGE SUMMARY Page 1 of 1 X Kristine Vargas [employer] X DISCHARGE SUMMARY
--- NOTE | ~2017-02-16 | EKG ---
PATIENT: JOANNE NOGUEIRA UNIT #: [id number] Ventricular Rate: 71 BPM Atrial Rate: 71 BPM P-R Interval: 182 ms QRS Duration: 88 ms Q-T Interval: 432 ms QTC Calculation(Bezet): 469 ms P Busy: 63 degrees Calculated R Busy: -10 degrees Calculated T Busy: -70 degrees Diagnosis Line: Normal sinus rhythm Diagnosis Line: ST and T wave abnormality, consider anterolateral Diagnosis Line: ischemia Diagnosis Line: Prolonged QT Diagnosis Line: Abnormal ECG Diagnosis Line: When compared with ECG of 16-FEB-2017 10:18, Diagnosis Line: No significant change was found Diagnosis Line: Confirmed by DINO SEXTON MD ([id number]) on Diagnosis Line: 02/20/2017 11:33:10 AM INTERPRETING MD: CARLIE MCGUIRE
--- NOTE | ~2017-02-16 | CO ---
Unit #: [id number] #: [id number] Patient: JOANNE NOGUEIRA [id number] [address] [place], [place] [address] [id number] I MR#: [id number] NAME: JOANNE NOGUEIRA. ROOM: 575 Age: 61 Sex: M Admission Date: 02/16/2017 : 1955 Attending Physician: Chantal Henson M.D. Primary Care Physician: Steffany Mckoy M.D. Consultation Date: 02/16/2017 CONSULTATION REPORT REASON FOR CONSULTATION Respiratory failure. HISTORY OF PRESENT ILLNESS The patient is a 61-year-old a gentleman, who has a history of diabetes and hypertension, who apparently was at this institution in 01/2017 for right elbow abscess with methicillin-sensitive Staph aureus. He then presents to the hospital this time with shortness of breath. He says he has been short of breath basically since that discharge. It worsened, and he presented to the emergency room. In the emergency room, he looks quite short of breath, was placed on noninvasive mask ventilation. Chest x-ray suggested pulmonary edema. He has been given Lasix any he feels much better. He is in the intensive care unit on face mask oxygen and prefers not to wear BiPAP. He has had wheezing, but generally does not wheeze. He has occasional green sputum "when I can get it up." He denies fever, hemoptysis, or chest pain. PAST MEDICAL HISTORY Remarkable for recent septic arthritis, diabetes, hypertension, gastroesophageal reflux. He denies previous heart disease or lung disease or cancer. MEDICATIONS At home according to the med rec sheet and EHR include insulins, Protonix, losartan, and aspirin. He denies any inhaled medicines and denies oxygen at home. ALLERGIES No known medical allergies. FAMILY HISTORY Coronary artery disease. SOCIAL HISTORY Smokes a pack of cigarettes a day. He does not drink. REVIEW OF SYSTEMS He does snore. Denies fever, chills, weight loss, chest pain, palpitations, abdominal pain, melena, hematochezia, hematuria, or dysuria. He has noted bilateral lower extremity edema over the last "few days." Further review of systems unremarkable. PHYSICAL EXAMINATION GENERAL: Reveals a patient, who is in no acute distress, 100% saturations Unit #: [id number] #: [id number] Patient: JOANNE NOGUEIRA on face mask oxygen. VITAL SIGNS: He is afebrile. Pulse 79, respiratory rate is 18, blood pressure 137/71, he is 6 feet tall, 229, BMI is 31. HEENT: Pupils equal, round, and reactive to light. Sclerae anicteric. Head atraumatic. NECK: Supple. No supraclavicular or cervical adenopathy appreciated. Mallampati class IV oropharynx. CHEST: Expiratory wheeze. Scattered rhonchi. No consolidation. CARDIAC: Reveals distant heart tones. Regular rate and rhythm. No definite pathologic murmur, rub, or gallop. ABDOMEN: Soft and nontender. No hepatomegaly or rebound. EXTREMITIES: Reveal no clubbing or cyanosis. He has 1 to 2+ bilateral edema. SKIN: Warm and dry without rash or diaphoresis. NEUROLOGIC: Grossly intact. No focal motor or sensory deficits. DIAGNOSTIC STUDIES IMAGING STUDIES: Chest x-ray, diffuse pulmonary infiltrates consistent with pulmonary edema. Did have some nodular qualities, but a CT scan in 12/2016 showed no underlying masses or nodules. EKG is remarkably unremarkable. LABORATORY RESULTS: His BUN is 12, creatinine is 1.0, troponin 0.22, BNP 760, INR normal. White blood cell count 9.7, hemoglobin 9.7, platelet count 337. IMPRESSION 1. Acute respiratory failure, basically by clinical means with increased respiratory rate, increased work of breathing, and need for noninvasive mask ventilation initially. 2. Chest x-ray consistent with congestive heart failure. 3. Wheezing, consider underlying chronic obstructive pulmonary disease versus airway edema. 4. Snoring, likely obstructive sleep apnea. 5. Diabetes. 6. Hypertension. 7. Gastroesophageal reflux. 8. Recent methicillin-sensitive Staphylococcus aureus of his of wound. PLAN Noninvasive mask ventilation, nebulized bronchodilators, brief pulse steroids. I will check a procalcitonin level, but for now, only oral antibiotics for possible bronchitis. Recheck chest x-ray in the morning. Certainly, he would benefit from outpatient PFTs and possibly outpatient nocturnal polysomnography. Thank you very much for allowing me to participate in the care of Mr. Nogueira. Dictated by... Arturo Vital M.D. HECTOR/marv TD: 02/17/2017 02:51 JOB #: [id number] CC: Steffany Mckoy M.D. Unit #: [id number] #: [id number] Patient: JOANNE NOGUEIRA CONSULTATION REPORT Page 1 of 1 X Arturo Vital MD CONSULTATION REPORT
--- NOTE | ~2017-02-16 | EKG ---
PATIENT: JOANNE NOGUEIRA UNIT #: [id number] Ventricular Rate: 76 BPM Atrial Rate: 76 BPM P-R Interval: 170 ms QRS Duration: 94 ms Q-T Interval: 434 ms QTC Calculation(Bezet): 488 ms P [place]: 60 degrees Calculated R [place]: -5 degrees Calculated T [place]: -21 degrees Diagnosis Line: Normal sinus rhythm Diagnosis Line: Nonspecific ST and T wave abnormality Diagnosis Line: Prolonged QT Diagnosis Line: Abnormal ECG Diagnosis Line: When compared with ECG of 27-JAN-2017 07:45, Diagnosis Line: Nonspecific T wave abnormality has replaced Diagnosis Line: inverted T waves in Inferior leads Diagnosis Line: QT has lengthened Diagnosis Line: Confirmed by DINO SEXTON MD ([id number]) on Diagnosis Line: 02/16/2017 2:26:52 PM INTERPRETING MD: CARLIE MCGUIRE
--- NOTE | ~2017-02-16 | CR63 ---
[facility] A Service of [facility] RADIOLOGY TEXT RESULTS PATIENT: JOANNE NOGUEIRA LOCATION: [place] [address] : 59 UNIT #: [id number] AGE: [address]: Chantal Henson MD SEX: M ORDER DR: [id number] [facility] [address] [place], [place] [address] [id number] MR#: [id number] #: [id number] NAME: JOANNE NOGUEIRA : 1955 SEX: M STUDY DATE/TIME: 02/18/2017 7:28 UNIT: [facility] ROOM: [facility] STUDY DESCRIPTION: CR Chest 2 View Attending Physician: Chantal Henson M.D. Ordering Physician: Arturo Vital M.D. Primary Care Physician: Steffany Mckoy M.D. MEDICAL IMAGING REPORT This report is preliminary unless electronic signature is present EXAM PA and lateral chest INDICTIONS Followup congestive heart failure, 02/18/17 COMPARISON: FINDINGS A portable view of the chest was obtained. Heart size is upper limits of normal. Faint bilateral infiltrates right side greater than left slightly improved. The bones are normal. IMPRESSION Slight decrease in the bilateral infiltrates suggesting congestive heart failure. Dictated by... Carlos Richards M.D. THIS IS AN ELECTRONICALLY VERIFIED REPORT Carlos Richards M.D. at 02/18/2017 4:02 PM SHARON/zander TD: 02/18/2017 14:03 JOB #: [id number] MEDICAL IMAGING REPORT Page 1 of 1 COPY
[~2017-02-16 10:06] MED LIST changes: -COZAAR PO; -LORTAB 5-325 M1 EACH PO; -LOVASTATIN10 MG PO; -NOVOLOG FL100 UNIT/1; -PATIENT'S PHARMACY; -STOOL SOFTENER50 MG PO
[2017-02-16 11:09] LABS: BASOPHIL# 0.2 X10e3 (0-0.3); BASOPHIL% 1.6 % (0-2.5); EOSINOPHIL# 0.3 X10e3 (0-0.7); EOSINOPHIL% 3.5 % (0.0-7.0); HEMATOCRIT 29.9 % (38.0-50.0); HEMOGLOBIN 9.7 gm/dL (13.0-16.0); LYMPHOCYTE# 1.8 X10e3 (1.0-3.5); LYMPHOCYTE% 18.6 % (17.0-45.0); MEAN CELL VOLUME 81.9 FL (83-96); MEAN CORPUSCULAR HEMOGLOBIN 26.6 PG (28-34); MEAN CORPUSCULAR HGB CONC 32.5 g/dL (30-36); MEAN PLATELET VOLUME 7.9 FL (6.5-11.5); MONOCYTE# 0.8 X10e3 (0-1.0); MONOCYTE% 7.7 % (3.0-12.0); NEUTROPHIL# 6.7 X10e3 (1.5-7.1); NEUTROPHIL% 68.6 % (40-75); PLATELET COUNT 337 X10e3 (140-420); RED BLOOD COUNT 3.65 X10e (3.90-5.60); RED CELL DISTRIBUTION WIDTH 14.7 % (11.0-15.5); WHITE BLOOD COUNT 9.7 X10e3 (4.0-10.5)
[2017-02-16 11:13] LABS: DIFF IND NO
[2017-02-16 11:37] LABS: ALBUMIN SERUM 3.3 g/dL (3.5-5.0); BILIRUBIN, DIRECT 0.2 mg/dL (0.0-0.2); BILIRUBIN,INDIRECT 0.5 mg/dL (0.0-0.9); BILIRUBIN,TOTAL 0.7 mg/dL (0.2-2.0); CALCIUM SERUM 8.4 mg/dL (8.4-10.2); POTASSIUM 3.5 mmol/L (3.5-5.1); PROTEIN TOTAL SERUM 7.2 g/dL (6.0-8.3)
[2017-02-16 11:44] LABS: INR 1.2; PARTIAL THROMBOPLASTIN TIME 29.6 SECONDS (23.5-31.3); PROTHROMBIN TIME (PATIENT) 12.9 SECONDS (10.0-11.7)
[2017-02-16 12:46] LABS: POC - CKMB 2.5 ng/mL (0.0-7.9); POC - TROPONIN 0.09 ng/mL (<=0.05)
[2017-02-16 13:19] LABS: POC - TROPONIN 0.07 ng/mL (<=0.05)
[2017-02-16] MEDS ORDERED: PATIENT'S PHARMACY (14:07)
[2017-02-16] MEDS ORDERED: COZAAR PO (14:08)
[2017-02-16] MEDS ORDERED: LORTAB 5-325 M1 EACH PO (14:08)
[2017-02-16] MEDS ORDERED: NOVOLOG FL100 UNIT/1 (14:08)
[2017-02-16] MEDS ORDERED: LANTUS100 U/ML SUBQ (14:08)
[2017-02-16] MEDS ORDERED: PROTONIX PO (14:08)
[2017-02-16] MEDS ORDERED: LOVASTATIN10 MG PO (14:08)
[2017-02-16] MEDS ORDERED: STOOL SOFTENER50 MG PO (14:09)
[2017-02-16 15:27] LABS: %MB 0.9 % (0.0-4.0); MB 3.6 ng/ml
[2017-02-16 20:25] LABS: %MB 0.8 % (0.0-4.0); MB 2.4 ng/ml
[2017-02-17 01:34] LABS: BASOPHIL# 0.1 X10e3 (0-0.3); EOSINOPHIL# 0.2 X10e3 (0-0.7); EOSINOPHIL% 2.1 % (0.0-7.0); HEMATOCRIT 27.6 % (38.0-50.0); HEMOGLOBIN 8.9 gm/dL (13.0-16.0); LYMPHOCYTE# 0.6 X10e3 (1.0-3.5); LYMPHOCYTE% 6.7 % (17.0-45.0); MEAN CELL VOLUME 81.2 FL (83-96); MEAN PLATELET VOLUME 7.4 FL (6.5-11.5); MONOCYTE# 0.2 X10e3 (0-1.0); MONOCYTE% 2.3 % (3.0-12.0); NEUTROPHIL# 7.5 X10e3 (1.5-7.1); NEUTROPHIL% 87.9 % (40-75); PLATELET COUNT 315 X10e3 (140-420); WHITE BLOOD COUNT 8.5 X10e3 (4.0-10.5)
[2017-02-17 01:35] LABS: DIFF IND NO
[2017-02-17 02:06] LABS: ALBUMIN SERUM 2.8 g/dL (3.5-5.0); BILIRUBIN,TOTAL 0.7 mg/dL (0.2-2.0); BUN/CREATININE RATIO 15.55; CREATININE SERUM 0.9 mg/dL (0.6-1.4); GLOM FILT RATE Estimated 93.2 mL/min (>60); MAGNESIUM 1.7 mg/dL (1.6-3.0); POTASSIUM 3.6 mmol/L (3.5-5.1); PROTEIN TOTAL SERUM 6.1 g/dL (6.0-8.3)
[2017-02-17 02:42] LABS: %MB 0.8 % (0.0-4.0)
[2017-02-18 05:24] LABS: BASOPHIL% 0.2 % (0-2.5); HEMATOCRIT 27.7 % (38.0-50.0); LYMPHOCYTE# 0.7 X10e3 (1.0-3.5); LYMPHOCYTE% 7.3 % (17.0-45.0); MEAN CELL VOLUME 81.5 FL (83-96); MEAN CORPUSCULAR HEMOGLOBIN 26.4 PG (28-34); MEAN CORPUSCULAR HGB CONC 32.4 g/dL (30-36); MEAN PLATELET VOLUME 8.1 FL (6.5-11.5); MONOCYTE# 0.2 X10e3 (0-1.0); MONOCYTE% 2.3 % (3.0-12.0); NEUTROPHIL% 90.2 % (40-75); PLATELET COUNT 298 X10e3 (140-420); RED BLOOD COUNT 3.41 X10e (3.90-5.60); RED CELL DISTRIBUTION WIDTH 14.9 % (11.0-15.5)
[2017-02-18 05:53] LABS: DIFF IND NO
[2017-02-18 06:18] LABS: CREATININE SERUM 1.1 mg/dL (0.6-1.4); GLOM FILT RATE Estimated 73.1 mL/min (>60); MAGNESIUM 2.2 mg/dL (1.6-3.0); POTASSIUM 4.5 mmol/L (3.5-5.1)
[2017-02-19 05:27] LABS: HEMATOCRIT 28.3 % (38.0-50.0); HEMOGLOBIN 9.1 gm/dL (13.0-16.0); MEAN CELL VOLUME 81.4 FL (83-96); MEAN CORPUSCULAR HEMOGLOBIN 26.2 PG (28-34); MEAN CORPUSCULAR HGB CONC 32.1 g/dL (30-36); MEAN PLATELET VOLUME 8.3 FL (6.5-11.5); RED BLOOD COUNT 3.48 X10e (3.90-5.60); RED CELL DISTRIBUTION WIDTH 15.2 % (11.0-15.5); WHITE BLOOD COUNT 9.4 X10e3 (4.0-10.5)
[2017-02-19 05:49] LABS: INR 1.1; PARTIAL THROMBOPLASTIN TIME 28.5 SECONDS (23.5-31.3); PROTHROMBIN TIME (PATIENT) 12.2 SECONDS (10.0-11.7)
[2017-02-19 07:02] LABS: POTASSIUM 4.3 mmol/L (3.5-5.1)
== END 2017-02-19 17:47 | DRG 280 ==
LOC: CED 10:06 → C5C 13:15 → CEDOF 13:15 → CED 13:44 → CICCU2 17:58 → CEDOF 17:58 → CICCU2 02-17 07:29 → C5C 02-17 13:38 → CICCU2 02-17 13:38 → C5C 02-17 13:38
PROVIDERS: Emergency Medicine; Family Medicine; Internal Medicine Interventional Cardiology; Nurse Practitioner
PROC: B24BYZZ Ultrasonography of Heart with Aorta using Other Contrast (ICD-10-PCS; principal; 2017-02-17)
PROC: 4A023N6 Measurement of Cardiac Sampling and Pressure, Right Heart, Percutaneous Approach (ICD-10-PCS; 2017-02-18)
PROC: B211YZZ Fluoroscopy of Multiple Coronary Arteries using Other Contrast (ICD-10-PCS; 2017-02-18)
PROC: B215YZZ Fluoroscopy of Left Heart using Other Contrast (ICD-10-PCS; 2017-02-18)
DX: I11.0 Hypertensive heart disease with heart failure (principal); I21.4 Non-ST elevation (NSTEMI) myocardial infarction; J96.01 Acute respiratory failure with hypoxia; E11.65 Type 2 diabetes mellitus with hyperglycemia; K21.9 Gastro-esophageal reflux disease without esophagitis; Z90.49 Acquired absence of other specified parts of digestive tract; Z79.4 Long term (current) use of insulin; Z79.82 Long term (current) use of aspirin; F17.200 Nicotine dependence, unspecified, uncomplicated; G47.33 Obstructive sleep apnea (adult) (pediatric); I50.21 Acute systolic (congestive) heart failure; I08.0 Rheumatic disorders of both mitral and aortic valves; I25.118 Atherosclerotic heart disease of native coronary artery with other forms of angina pectoris
CPT/HCPCS: 71010; 71020; 80048; 80053; 80061; 80076; 82308; 82550; 82553; 82810; 82947; 83036; 83735; 83880; 84443; 84484; 85025; 85027; 85610; 85730; 93005; 93306; 94640; 94660; 94664; 94760; 94761; 94762; 99152; 99153; 99291; C1769; C1887; C1894; C9113; J0696; J1644; J1650; J1815; J1940; J2250; J2550; J2920; J3010; J3475